=== PATIENT | female | born 1985 | race Caucasian/White ===

== ENCOUNTER 2021-07-28 08:56 | Day surgery (SDC) | payer MEDICAID ==
[2021-07-22 12:29] LABS: BASOPHILS # (AUTO) 0.1 X10'3 (0-0.2); BASOPHILS % (AUTO) 1.9 % (0-1); EOSINOPHILS # (AUTO) 0.2 X10'3 (0-0.9); EOSINOPHILS % (AUTO) 4.6 % (0-6); LYMPHOCYTES # (AUTO) 1.1 X10'3 (1.1-4.8); LYMPHOCYTES % (AUTO) 21.9 % (21-51); MEAN CORPUSCULAR HEMOGLOBIN 32.8 PG (27.0-31.0); MEAN CORPUSCULAR HGB CONC 33.8 g/dL (33.0-36.5); MEAN CORPUSCULAR VOLUME 97.1 FL (78-98); MEAN PLATELET VOLUME 7.8 FL (7.4-10.4); MONOCYTES # (AUTO) 0.4 X10'3 (0-0.9); NEUTROPHILS # (AUTO) 3.3 X10'3 (1.8-7.7); NEUTROPHILS % (AUTO) 64.6 % (42-75); PRE OP HEMATOCRIT 38.1 % (35.0-45.0); PRE OP HEMOGLOBIN 12.9 g/dL (12.0-16.0); PRE OP PLATELET COUNT 253 X10'3 (140-440); RED BLOOD COUNT 3.93 X10'6 (4.20-5.60); RED CELL DISTRIBUTION WIDTH 12.3 % (11.5-14.5)
[2021-07-22 12:45] LABS: ALBUMIN 4.2 G/DL (3.4-5.0); ALBUMIN/GLOBULIN RATIO 1.2 (1.1-1.5); ALKALINE PHOSPHATASE 75 IU/L (46-116); BLOOD UREA NITROGEN 11 MG/DL (7-18); BUN/CREATININE RATIO 14.7 (6.6-38.0); CALCIUM 9.2 MG/DL (8.5-10.1); CHLORIDE 108 MMOL/L (99-107); CREATININE 0.75 MG/DL (0.40-0.90); HCG SERUM QL NEGATIVE; PRE OP ALT 23 U/L (30-65); PRE OP ANION GAP 9 (8-16); PRE OP AST 16 U/L (10-37); PRE OP BILIRUB, TOTAL 0.5 MG/DL (0.0-1.0); PRE OP GLUCOSE 89 MG/DL (70-104); PRE OP POTASSIUM 4.1 MMOL/L (3.4-5.1); PRE OP SODIUM 144 MMOL/L (135-145); TOTAL CARBON DIOXIDE 27.4 MMOL/L (24-32); TOTAL PROTEIN 7.6 G/DL (6.4-8.2); eGFR 88 ML/MIN
[2021-07-28] VITALS (8 sets, daily range): BP systolic 100–117; BP diastolic 57–67
[~2021-07-28] VITALS: Ht 162.6 cm; Wt 62.6 kg
[~2021-07-28 08:56] MED LIST: BUSP5TAB3 PO; MULT-1085 PO; SERT-433 PO; famotidine 20mg tablet PO ONE; ringers solution, lacted 1,000 ML IV SCH
[2021-07-28] MEDS ORDERED: LIDOCAINE 1%/EPI 1:100,000 inj. 10 ML multi-dose vial ONE (14:08)
[2021-07-28] MEDS ORDERED: BUPIVAcaine/PF 2.5mg/ml (0.25%) 10ml vial ONE (14:08)
[2021-07-28] MEDS ORDERED: fentaNYL/PF 50MCG/1 ML 2ML syringe ONE (14:10)
[2021-07-28] MEDS ORDERED: midazolam 1 mg/ML 2ml injection ONE (14:11)
[2021-07-28] MEDS ORDERED: dexamethasone sod phosphate 10mg/ml inj ONE (14:12)
[2021-07-28] MEDS ORDERED: neostigmine methylsulfate 1 MG/ML 10ml vial ONE (14:12)
[2021-07-28] MEDS ORDERED: sevoflurane 250ml liquid IH ONE (14:12)
[2021-07-28] MEDS ORDERED: ondansetron/PF 4mg/2ml inj ONE (14:12)
[2021-07-28] MEDS ORDERED: rocuronium 10mg/ml inj IV ONE (14:27)
[2021-07-28] MEDS ORDERED: propofol inj 20 ML IV ONE (14:27)
[2021-07-28] MEDS ORDERED: glycopyrrolate 0.2mg/ml inj ONE (14:27)
[2021-07-28] MEDS ORDERED: LIDOcaine 2% (20mg/ml) 5ml vial ONE (14:27)
[2021-07-28] MEDS ORDERED: ringers solution, lacted 1,000 ML IV SCH (14:40)
[2021-07-28] MEDS ORDERED: fentaNYL/PF 50MCG/1 ML 2ML syringe IV PRN ×3 (14:40)
[2021-07-28] MEDS ORDERED: labetalol 20mg/4ml (5mg/ml) syringe IV PRN (14:40)
[2021-07-28] MEDS ORDERED: hydrALAZINE 20mg/ml inj. IV PRN (14:40)
[2021-07-28] MEDS ORDERED: ondansetron/PF 4mg/2ml inj IV PRN (14:40)
[2021-07-28] MEDS ORDERED: morphine 4 MG/ML inj SYRINge IV PRN (14:40)
--- NOTE | 2021-07-28 15:01 | NUR ---
Received from OR via , accompanied by Anesthesiologist DR SANCHEZ and report given by Anesthesiolgist. AWAKENS TO VOICE. VITALS STABLE. DRESSING DI. PAWAN PAIN.
[2021-07-28] MEDS ORDERED: HYDROcodone/acetaminophen 5mg/325mg tablet PO ONE (15:25)
--- NOTE | 2021-07-28 16:11 | NUR ---
AWAKE AND ORIENTED. VITALS STABLE. DRESSING DI. STATES PAIN IMPROVING. HOME WITH HER SPOUSE AT THIS TIME.
== END 2021-07-28 16:11 | disposition home or self-care (01) ==
LOC: PAS 08:56
PROVIDERS: ATTEND Colon & Rectal Surgery
DX: K60.1 Chronic anal fissure (principal); K62.89 Other specified diseases of anus and rectum; F32.9 Major depressive disorder, single episode, unspecified; D64.9 Anemia, unspecified; Z20.822 Contact with and (suspected) exposure to COVID-19; Z98.890 Other specified postprocedural states; Z79.899 Other long term (current) drug therapy
CPT/HCPCS: 36415; 45990; 46200; 80053; 82948; 84703; 85025; J1100; J2001; J2250; J2405; J2704; J2710; J3010; J3490; U0003; U0005; Z7506; Z7512; A4215; A4402; A4618; A7000; J7120

== ENCOUNTER 2023-01-12 15:16 | Emergency (ER) | payer BC, MEDICAID ==
[~2023-01-12] VITALS: Ht 162.6 cm; Wt 61.2 kg
[~2023-01-12 15:16] MED LIST changes: -famotidine 20mg tablet PO ONE; -ringers solution, lacted 1,000 ML IV SCH
[2023-01-12 15:29] VITALS: BP 105/69
[2023-01-12 15:48] LABS: BASOPHILS # (AUTO) 0.1 X10'3 (0-0.2); BASOPHILS % (AUTO) 1.1 % (0-1); EOSINOPHILS # (AUTO) 0.1 X10'3 (0-0.9); EOSINOPHILS % (AUTO) 2.1 % (0-6); HEMATOCRIT 36.9 % (35.0-45.0); HEMOGLOBIN 12.4 g/dl (12.0-16.0); LYMPHOCYTES # (AUTO) 1.6 X10'3 (1.1-4.8); LYMPHOCYTES % (AUTO) 24.1 % (21-51); MEAN CORPUSCULAR HEMOGLOBIN 32.3 PG (27.0-31.0); MEAN CORPUSCULAR HGB CONC 33.6 g/dL (33.0-36.5); MEAN CORPUSCULAR VOLUME 96.3 FL (78-98); MEAN PLATELET VOLUME 7.9 FL (7.4-10.4); MONOCYTES # (AUTO) 0.4 X10'3 (0-0.9); MONOCYTES % (AUTO) 6.5 % (2-12); NEUTROPHILS # (AUTO) 4.5 X10'3 (1.8-7.7); NEUTROPHILS % (AUTO) 66.2 % (42-75); PLATELET COUNT 237 X10'3 (140-440); RED BLOOD COUNT 3.83 X10'6 (4.20-5.60); WHITE BLOOD COUNT 6.8 X10'3 (4.5-11.0)
[2023-01-12 16:04] LABS: ALANINE AMINOTRANSFERASE 17 U/L (12-78); ALBUMIN/GLOBULIN RATIO 1.2 (1.1-1.5); ALKALINE PHOSPHATASE 41 IU/L (46-116); ANION GAP 5 (8-16); ASPARTATE AMINO TRANSFERASE 17 U/L (10-37); BILIRUBIN,TOTAL 0.3 MG/DL (0.1-1.0); BLOOD UREA NITROGEN 16 MG/DL (7-18); BUN/CREATININE RATIO 23.5 (10.0-20.0); CALCIUM 9.3 MG/DL (8.5-10.1); CHLORIDE 107 MMOL/L (99-107); CREATININE 0.68 MG/DL (0.40-0.90); GLUCOSE 114 MG/DL (70-104); SODIUM 141 MMOL/L (135-145); TOTAL CARBON DIOXIDE 28.9 MMOL/L (24-32); TOTAL PROTEIN 7.3 G/DL (6.4-8.2); eGFR > 90 ML/MIN
[2023-01-12 16:11] LABS: MAGNESIUM 2.1 MG/DL (1.5-2.4)
[2023-01-12] MEDS ORDERED: [UNRECOGNIZED DRUG - CODE] PO (19:10)
[2023-01-12] MEDS ORDERED: morphine 4 MG/ML inj SYRINge IV ONE (19:30)
[2023-01-12] MEDS ORDERED: ondansetron/PF 4mg/2ml inj IV ONE (19:30)
== END 2023-01-12 19:36 | disposition home or self-care (01) ==
LOC: ER 15:17
DX: R07.9 Chest pain, unspecified (principal); R00.2 Palpitations; F41.9 Anxiety disorder, unspecified
CPT/HCPCS: 36415; 80053; 82948; 83735; 83880; 84484; 85025; 93005; 99284

== ENCOUNTER 2023-04-22 22:49 | Emergency (ER) | payer BC, MEDICAID ==
[~2023-04-22] VITALS: Ht 162.6 cm; Wt 62.3 kg
[~2023-04-22 22:49] MED LIST changes: +[UNRECOGNIZED DRUG - CODE] PO
[2023-04-22 23:31] LABS: BASOPHILS # (AUTO) 0.1 X10'3 (0-0.2); EOSINOPHILS # (AUTO) 0.2 X10'3 (0-0.9); HEMATOCRIT 35.3 % (35.0-45.0); HEMOGLOBIN 11.9 g/dl (12.0-16.0); LYMPHOCYTES # (AUTO) 2.1 X10'3 (1.1-4.8); LYMPHOCYTES % (AUTO) 28.2 % (21-51); MEAN CORPUSCULAR HEMOGLOBIN 32.3 PG (27.0-31.0); MEAN CORPUSCULAR HGB CONC 33.6 g/dL (33.0-36.5); MEAN CORPUSCULAR VOLUME 96.2 FL (78-98); MEAN PLATELET VOLUME 8.2 FL (7.4-10.4); MONOCYTES # (AUTO) 0.7 X10'3 (0-0.9); NEUTROPHILS # (AUTO) 4.4 X10'3 (1.8-7.7); NEUTROPHILS % (AUTO) 58.8 % (42-75); PLATELET COUNT 212 X10'3 (140-440); RED BLOOD COUNT 3.67 X10'6 (4.20-5.60); RED CELL DISTRIBUTION WIDTH 13.3 % (11.5-14.5); WHITE BLOOD COUNT 7.5 X10'3 (4.5-11.0)
--- NOTE | 2023-04-22 23:32 | NUR ---
pt reports blood sugar dropping to 47 on home monitor. gave pt orange juice, rachel crackers and a turkey sandwich while still in lobby.
[2023-04-22 23:39] LABS: ALANINE AMINOTRANSFERASE 23 U/L (12-78); ALBUMIN/GLOBULIN RATIO 1.3 (1.1-1.5); ALKALINE PHOSPHATASE 38 IU/L (46-116); ANION GAP 8 (8-16); ASPARTATE AMINO TRANSFERASE 16 U/L (10-37); BILIRUBIN,TOTAL 0.3 MG/DL (0.1-1.0); BLOOD UREA NITROGEN 20 MG/DL (7-18); CALCIUM 8.8 MG/DL (8.5-10.1); CHLORIDE 105 MMOL/L (99-107); GLUCOSE 90 MG/DL (70-104); POTASSIUM 3.7 MMOL/L (3.5-5.1); SODIUM 140 MMOL/L (135-145); TOTAL PROTEIN 7.1 G/DL (6.4-8.2); eGFR 81 ML/MIN
[2023-04-22 23:48] LABS: URINE HCG NEGATIVE (NEG)
--- NOTE | 2023-04-22 23:52 | NUR ---
PT REPORTS LOW BLOOD SUGAR ON MONITOR READING "LOW". BROUGHT TO ROOM 8, AND JUICE TAKEN AND KARLI CRAKERS EATED. ACCUCHECK READING 110. IV INITIATED.
[2023-04-22 23:53] LABS: CLARITY,URINE CLEAR (Clear); COLOR,URINE YELLOW (Yellow); GLUCOSE, URINE NEGATIVE (Neg); KETONES,URINE NEGATIVE (Neg); LEUKOCYTE ESTERASE ,URINE NEGATIVE (Neg); NITRITES, URINE NEGATIVE (Neg); OCCULT BLOOD,URINE NEGATIVE (Neg); PROTEIN,URINE NEGATIVE (Neg); UROBILINOGEN,URINE 0.2 E.U/dL (0.2-1.0)
[2023-04-22] MEDS ORDERED: FERR-119 PO (23:58)
[2023-04-22] MEDS ORDERED: SERT-434 PO (23:58)
[2023-04-23] LABS: UA COLLECTION TYPE CLN CATCH MIDSTREAM
[2023-04-23] MEDS ORDERED: dexamethasone sod phosphate 10mg/ml inj IV STA (00:24)
--- NOTE | 2023-04-23 00:45 | NUR ---
blood glucose monitor from this rn and pt CGM difference is around [address] dean notified of discrepency.
[2023-04-23 00:46] VITALS: BP 118/76
== END 2023-04-23 01:04 | disposition home or self-care (01) ==
LOC: ER 22:50
DX: E16.2 Hypoglycemia, unspecified (principal)
CPT/HCPCS: 36415; 80053; 81003; 81025; 82948; 83880; 84484; 85025; 93005; 96374; 99284; J1100

== ENCOUNTER 2024-01-27 09:56 | Day surgery (SDC) | payer BC ==
[2024-01-24 15:20] LABS: BASOPHILS # (AUTO) 0.1 X10'3 (0-0.2); BASOPHILS % (AUTO) 0.9 % (0-1); EOSINOPHILS # (AUTO) 0.1 X10'3 (0-0.9); EOSINOPHILS % (AUTO) 1.6 % (0-6); LYMPHOCYTES # (AUTO) 1.6 X10'3 (1.1-4.8); LYMPHOCYTES % (AUTO) 27.9 % (21-51); MEAN CORPUSCULAR HEMOGLOBIN 32.9 PG (27.0-31.0); MEAN CORPUSCULAR HGB CONC 34.1 g/dL (33.0-36.5); MEAN CORPUSCULAR VOLUME 96.5 FL (78-98); MEAN PLATELET VOLUME 8.1 FL (7.4-10.4); MONOCYTES # (AUTO) 0.5 X10'3 (0-0.9); MONOCYTES % (AUTO) 8.4 % (2-12); NEUTROPHILS # (AUTO) 3.6 X10'3 (1.8-7.7); NEUTROPHILS % (AUTO) 61.2 % (42-75); PRE OP HEMATOCRIT 39.2 % (35.0-45.0); PRE OP HEMOGLOBIN 13.4 g/dL (12.0-16.0); PRE OP PLATELET COUNT 241 X10'3 (140-440); PRE OP WHITE BLOOD COUNT 5.9 10'3 (4.8-10.8); RED BLOOD COUNT 4.07 X10'6 (4.20-5.60); RED CELL DISTRIBUTION WIDTH 12.7 % (11.5-14.5)
[2024-01-24 15:35] LABS: ALBUMIN 3.8 G/DL (3.4-5.0); ALKALINE PHOSPHATASE 42 IU/L (46-116); BLOOD UREA NITROGEN 15 MG/DL (7-18); BUN/CREATININE RATIO 23.8 (10.0-20.0); CHLORIDE 102 MMOL/L (99-107); CREATININE 0.63 MG/DL (0.40-0.90); PRE OP ALT 29 U/L (30-65); PRE OP ANION GAP 9 (8-16); PRE OP AST 25 U/L (10-37); PRE OP BILIRUB, TOTAL 0.3 MG/DL (0.0-1.0); PRE OP GLUCOSE 88 MG/DL (70-104); PRE OP SODIUM 140 MMOL/L (135-145); TOTAL CARBON DIOXIDE 29.5 MMOL/L (24-32); TOTAL PROTEIN 7.6 G/DL (6.4-8.2); eGFR > 90 ML/MIN
[2024-01-24 16:08] LABS: HCG SERUM QL NEGATIVE
[2024-01-27] VITALS (13 sets, daily range): BP systolic 93–110; BP diastolic 53–65; PULSE 64–93; RESP 12–18; TEMP 97.4; O2SAT 99–100
[~2024-01-27] VITALS: Ht 162.6 cm; Wt 63.6 kg
[2024-01-27] MEDS: ceFOXitin 2GM-NS 100mL ADDvant 100 ML IV ONE (05:30)
[~2024-01-27 09:56] MED LIST changes: +GLUCOSE TABS; +METH-798 PO; -SERT-433 PO; +SERT-434 PO; -[UNRECOGNIZED DRUG - CODE] PO
[2024-01-27] MEDS: famotidine 20mg tablet PO ONE (10:39)
[2024-01-27] MEDS: ringers solution, lacted 1,000 ML IV SCH ×2 (10:40→13:59)
[2024-01-27 12:01] LABS: URINE HCG NEGATIVE (NEG)
[2024-01-27] MEDS ORDERED: proCHLORperazine 10 MG/2 ml inj IV PRN (12:30)
[2024-01-27] MEDS ORDERED: morphine 2 MG/ML inj. syringe IV PRN (12:30)
[2024-01-27] MEDS ORDERED: hydrALAZINE 20mg/ml inj. IV PRN (12:30)
[2024-01-27] MEDS ORDERED: labetalol 20mg/4ml (5mg/ml) syringe IV PRN (12:30)
[2024-01-27] MEDS ORDERED: morphine 4 MG/ML inj SYRINge IV PRN (12:30)
[2024-01-27] MEDS ORDERED: meperidine/PF 25mg/ml syringe IV PRN (12:30)
[2024-01-27] MEDS ORDERED: HYDROmorphone/PF 0.2 MG/ML SYRINGE IV PRN ×2 (12:30)
[2024-01-27] MEDS ORDERED: sevoflurane 250ml liquid IH ONE (12:32)
[2024-01-27] MEDS ORDERED: fentaNYL/PF 50MCG/1 ML 2ML syringe ONE (12:36)
[2024-01-27] MEDS ORDERED: midazolam 1 mg/ML 2ml injection ONE (12:36)
[2024-01-27] MEDS ORDERED: propofol inj 20 ML IV ONE (12:45)
[2024-01-27] MEDS ORDERED: LIDOcaine 2% (20mg/ml) 5ml vial ONE ×2 (12:45)
[2024-01-27] MEDS ORDERED: rocuronium 10mg/ml inj IV ONE (12:45)
[2024-01-27] MEDS ORDERED: dexamethasone sod phosphate 4mg/ml inj. ONE (12:45)
[2024-01-27] MEDS ORDERED: ondansetron/PF 4mg/2ml inj ONE (12:45)
[2024-01-27] MEDS: BUPIVAcaine 0.25% w/Epi /PF 30ml vial ONE (13:26)
[2024-01-27] MEDS ORDERED: morphine 4 MG/ML inj SYRINge ONE (13:35)
[2024-01-27] MEDS: ondansetron/PF 4mg/2ml inj IV PRN (13:48)
[2024-01-27] MEDS: acetaminophen 1,000mg/100ml IV 100 ML IV ONE (13:58)
[2024-01-27] MEDS: ketorolac trometh. 30mg/ml inj. IV ONE (14:00)
== END 2024-01-27 15:34 | disposition home or self-care (01) ==
LOC: PAS 09:56
PROVIDERS: ATTEND Specialist
DX: Z30.2 Encounter for sterilization (principal); N92.0 Excessive and frequent menstruation with regular cycle; F41.9 Anxiety disorder, unspecified; F32.A Depression, unspecified; Z79.891 Long term (current) use of opiate analgesic; Z79.899 Other long term (current) drug therapy; Z90.721 Acquired absence of ovaries, unilateral; Z98.890 Other specified postprocedural states
CPT/HCPCS: 36415; 58563; 58670; 80053; 81025; 82948; 84703; 85025; 93005; J0131; J0665; J0694; J1100; J1885; J2250; J2270; J2405; J2704; J2710; J3010; J3490; J7030; J7120; Z7506; Z7508; Z7512; A4355; A4618; A4649; A6258; A7000; S0020

== ENCOUNTER 2024-02-22 08:35 | Outpatient (CLI) | payer BC ==
[2024-02-22 09:23] LABS: BASOPHILS # (AUTO) 0.1 X10'3 (0-0.2); BASOPHILS % (AUTO) 1.4 % (0-1); EOSINOPHILS # (AUTO) 0.1 X10'3 (0-0.9); EOSINOPHILS % (AUTO) 2.3 % (0-6); HEMATOCRIT 38.2 % (35.0-45.0); LYMPHOCYTES # (AUTO) 1.2 X10'3 (1.1-4.8); LYMPHOCYTES % (AUTO) 24.8 % (21-51); MEAN CORPUSCULAR HEMOGLOBIN 33.2 PG (27.0-31.0); MEAN CORPUSCULAR VOLUME 97.7 FL (78-98); MEAN PLATELET VOLUME 8.5 FL (7.4-10.4); MONOCYTES # (AUTO) 0.3 X10'3 (0-0.9); MONOCYTES % (AUTO) 5.9 % (2-12); NEUTROPHILS # (AUTO) 3.2 X10'3 (1.8-7.7); NEUTROPHILS % (AUTO) 65.6 % (42-75); PLATELET COUNT 224 X10'3 (140-440); RED BLOOD COUNT 3.91 X10'6 (4.20-5.60); WHITE BLOOD COUNT 4.8 X10'3 (4.5-11.0)
[2024-02-22 09:40] LABS: ALANINE AMINOTRANSFERASE 17 U/L (12-78); ALBUMIN 4.1 G/DL (3.4-5.0); ALBUMIN/GLOBULIN RATIO 1.2 (1.1-1.5); ALKALINE PHOSPHATASE 36 IU/L (46-116); ANION GAP 10 (8-16); ASPARTATE AMINO TRANSFERASE 13 U/L (10-37); BILIRUBIN,TOTAL 0.6 MG/DL (0.1-1.0); BLOOD UREA NITROGEN 10 MG/DL (7-18); BUN/CREATININE RATIO 14.3 (10.0-20.0); CALCIUM 8.9 MG/DL (8.5-10.1); CHLORIDE 106 MMOL/L (99-107); FERRITIN 44 NG/ML (8-252); FREE T4 (FREE THYROXINE) 0.78 NG/DL (0.73-1.40); GLUCOSE 75 MG/DL (70-104); POTASSIUM 3.9 MMOL/L (3.5-5.1); SODIUM 143 MMOL/L (135-145); THYROID STIMULATING HORMONE 2.12 ulU/ml (0.34-4.50); TOTAL CARBON DIOXIDE 27.1 MMOL/L (24-32); TOTAL PROTEIN 7.4 G/DL (6.4-8.2); eGFR > 90 ML/MIN
[2024-02-22 09:53] LABS: % IRON SATURATION 35 % (11-46); IRON 113 UG/DL (49-151); TOTAL IRON BINDING CAPACITY 325 UG/DL (259-388)
[2024-02-23 16:43] LABS: FOLATE SERUM(FOLIC) 17.1 ng/mL (>3.0)
== END 2024-02-22 23:59 | disposition home or self-care (01) ==
LOC: RAD 08:35
PROVIDERS: ATTEND Nurse Practitioner Family
DX: R53.83 Other fatigue (principal); Z73.3 Stress, not elsewhere classified; D64.9 Anemia, unspecified
CPT/HCPCS: 36415; 80053; 82607; 82728; 82746; 83540; 83550; 84439; 84443; 85025

== ENCOUNTER 2024-04-26 08:42 | Outpatient (CLI) | payer BC ==
[2024-04-26 09:29] LABS: BASOPHILS # (AUTO) 0.1 X10'3 (0-0.2); BASOPHILS % (AUTO) 1.4 % (0-1); EOSINOPHILS # (AUTO) 0.2 X10'3 (0-0.9); EOSINOPHILS % (AUTO) 4.1 % (0-6); HEMATOCRIT 36.4 % (35.0-45.0); HEMOGLOBIN 12.3 g/dl (12.0-16.0); LYMPHOCYTES # (AUTO) 1.1 X10'3 (1.1-4.8); LYMPHOCYTES % (AUTO) 27.4 % (21-51); MEAN CORPUSCULAR HEMOGLOBIN 32.7 PG (27.0-31.0); MEAN CORPUSCULAR HGB CONC 33.8 g/dL (33.0-36.5); MEAN CORPUSCULAR VOLUME 96.8 FL (78-98); MEAN PLATELET VOLUME 8.2 FL (7.4-10.4); MONOCYTES # (AUTO) 0.3 X10'3 (0-0.9); NEUTROPHILS # (AUTO) 2.3 X10'3 (1.8-7.7); NEUTROPHILS % (AUTO) 59.1 % (42-75); PLATELET COUNT 199 X10'3 (140-440); RED BLOOD COUNT 3.76 X10'6 (4.20-5.60); RED CELL DISTRIBUTION WIDTH 12.8 % (11.5-14.5); WHITE BLOOD COUNT 3.9 X10'3 (4.5-11.0)
[2024-04-26 09:43] LABS: ALANINE AMINOTRANSFERASE 31 U/L (12-78); ALBUMIN 3.7 G/DL (3.4-5.0); ALBUMIN/GLOBULIN RATIO 1.2 (1.1-1.5); ALKALINE PHOSPHATASE 32 IU/L (46-116); ANION GAP 7 (8-16); ASPARTATE AMINO TRANSFERASE 18 U/L (10-37); BILIRUBIN,TOTAL 0.5 MG/DL (0.1-1.0); BLOOD UREA NITROGEN 11 MG/DL (7-18); BUN/CREATININE RATIO 15.7 (10.0-20.0); CALCIUM 8.8 MG/DL (8.5-10.1); CHLORIDE 107 MMOL/L (99-107); CHOL/HDL RATIO 2.5 (0.00-4.99); CHOLESTEROL 176 MG/DL (0-200); FREE T4 (FREE THYROXINE) 0.77 NG/DL (0.73-1.40); GLUCOSE 84 MG/DL (70-104); HDL CHOLESTEROL 70 MG/DL (35-60); LDL CHOLESTEROL 99 MG/DL (50-100); POTASSIUM 3.7 MMOL/L (3.5-5.1); SODIUM 141 MMOL/L (135-145); TOTAL CARBON DIOXIDE 27.4 MMOL/L (24-32); TOTAL PROTEIN 6.9 G/DL (6.4-8.2); TRIGLYCERIDES 30 MG/DL (20-135); eGFR > 90 ML/MIN
[2024-04-26 09:56] LABS: THYROID STIMULATING HORMONE 1.79 ulU/ml (0.34-4.50)
== END 2024-04-26 23:59 | disposition home or self-care (01) ==
LOC: RAD 08:42
PROVIDERS: ATTEND Psychiatry & Neurology Psychiatry
DX: R53.83 Other fatigue (principal)
CPT/HCPCS: 36415; 80053; 80061; 84439; 84443; 85025

== ENCOUNTER 2024-06-04 12:51 | Outpatient (CLI) | payer BC | END 2024-06-04 23:59 | disposition home or self-care (01) | LOC: MRI 12:51 | PROVIDERS: ATTEND Nurse Practitioner Family | DX: M47.812 Spondylosis without myelopathy or radiculopathy, cervical region (principal); M48.02 Spinal stenosis, cervical region; M54.2 Cervicalgia | CPT/HCPCS: 72141 ==

== ENCOUNTER 2024-09-08 10:57 | Outpatient (CLI) | payer BC ==
[2024-09-08 11:22] LABS: BASOPHILS # (AUTO) 0.1 X10'3 (0-0.2); BASOPHILS % (AUTO) 1.4 % (0-1); EOSINOPHILS # (AUTO) 0.2 X10'3 (0-0.9); EOSINOPHILS % (AUTO) 3.1 % (0-6); HEMATOCRIT 38.4 % (35.0-45.0); HEMOGLOBIN 13.2 g/dl (12.0-16.0); LYMPHOCYTES # (AUTO) 1.8 X10'3 (1.1-4.8); LYMPHOCYTES % (AUTO) 27.7 % (21-51); MEAN CORPUSCULAR HEMOGLOBIN 33.4 PG (27.0-31.0); MEAN CORPUSCULAR HGB CONC 34.3 g/dL (33.0-36.5); MEAN CORPUSCULAR VOLUME 97.3 FL (78-98); MONOCYTES # (AUTO) 0.5 X10'3 (0-0.9); MONOCYTES % (AUTO) 6.9 % (2-12); NEUTROPHILS % (AUTO) 60.9 % (42-75); PLATELET COUNT 229 X10'3 (140-440); RED BLOOD COUNT 3.95 X10'6 (4.20-5.60); RED CELL DISTRIBUTION WIDTH 12.6 % (11.5-14.5); WHITE BLOOD COUNT 6.5 X10'3 (4.5-11.0)
[2024-09-08 11:35] LABS: ALANINE AMINOTRANSFERASE 21 U/L (12-78); ALBUMIN 4.1 G/DL (3.4-5.0); ALBUMIN/GLOBULIN RATIO 1.2 (1.1-1.5); ALKALINE PHOSPHATASE 32 IU/L (46-116); ANION GAP 4 (8-16); ASPARTATE AMINO TRANSFERASE 15 U/L (10-37); BILIRUBIN,TOTAL 0.4 MG/DL (0.1-1.0); BLOOD UREA NITROGEN 12 MG/DL (7-18); CALCIUM 8.7 MG/DL (8.5-10.1); CHLORIDE 104 MMOL/L (99-107); GLUCOSE 97 MG/DL (70-104); POTASSIUM 3.8 MMOL/L (3.5-5.1); SODIUM 137 MMOL/L (135-145); TOTAL CARBON DIOXIDE 29.1 MMOL/L (24-32); TOTAL PROTEIN 7.6 G/DL (6.4-8.2); eGFR 80 ML/MIN
== END 2024-09-08 23:59 | disposition home or self-care (01) ==
LOC: RAD 10:57
PROVIDERS: ATTEND Nurse Practitioner Family
DX: R04.2 Hemoptysis (principal)
CPT/HCPCS: 36415; 71046; 80053; 85025

== ENCOUNTER 2024-11-21 07:36 | Day surgery (SDC) | payer BC ==
[~2024-11-21] VITALS: Ht 162.6 cm; Wt 60.9 kg
[~2024-11-21 07:36] MED LIST changes: +BUSP30TA3; -BUSP5TAB3 PO; -METH-798 PO; -MULT-1085 PO; +OMEP40CA21; +PROC-8 PO; +PROC10TA97 PO; +SUMA25TA9; +VALA100031 PO
[2024-11-21 07:55] VITALS: BP 110/65; PULSE 70; RESP 19
[2024-11-21] MEDS ORDERED: fentaNYL/PF 50MCG/1 ML 2ML syringe ONE (08:30)
[2024-11-21] MEDS ORDERED: propofol inj 20 ML IV ONE (08:31)
[2024-11-21] MEDS ORDERED: MIDAZolam 1 MG/ML 5ML VIAL ONE (08:31)
[2024-11-21] MEDS ORDERED: LIDOcaine 2% (20mg/ml) 5ml vial ONE (08:31)
[2024-11-21 09:05] VITALS: BP 84/56; PULSE 60; RESP 16; O2SAT 100
[2024-11-21 09:15] VITALS: BP 94/63; PULSE 67; RESP 15; O2SAT 100
[2024-11-21 09:25] VITALS: BP 98/60; PULSE 61; RESP 14; O2SAT 100
[2024-11-21 09:35] VITALS: BP 96/66; PULSE 58; RESP 15; O2SAT 100
== END 2024-11-21 09:46 | disposition home or self-care (01) ==
LOC: GI LAB 07:36
PROVIDERS: ATTEND Internal Medicine Gastroenterology
DX: K30 Functional dyspepsia (principal); K21.9 Gastro-esophageal reflux disease without esophagitis
CPT/HCPCS: 43239; J2003; J2250; J2704; J3010; J7030; Z7512; A4620

== ENCOUNTER 2024-11-27 10:31 | Day surgery (SDC) | payer BC ==
[~2024-11-27] VITALS: Ht 162.6 cm; Wt 60.9 kg
[2024-11-27] VITALS (7 sets, daily range): BP systolic 91–106; BP diastolic 56–63; PULSE 50–61; RESP 12–17; TEMP 98.1; O2SAT 99–100
[2024-11-27] MEDS ORDERED: propofol inj 20 ML IV ONE (12:53)
== END 2024-11-27 13:45 | disposition home or self-care (01) ==
LOC: GI LAB 10:31
PROVIDERS: ATTEND Internal Medicine Gastroenterology
DX: R19.4 Change in bowel habit (principal); Z83.79 Family history of other diseases of the digestive system
CPT/HCPCS: 45380; J2704; J7030; Z7512; A4620

== ENCOUNTER 2025-03-14 12:41 | Outpatient (CLI) | payer BC ==
[2025-03-14 13:08] LABS: BASOPHILS # (AUTO) 0.1 X10'3 (0-0.2); BASOPHILS % (AUTO) 1.3 % (0-1); EOSINOPHILS # (AUTO) 0.1 X10'3 (0-0.9); EOSINOPHILS % (AUTO) 2.2 % (0-6); HEMATOCRIT 35.9 % (35.0-45.0); HEMOGLOBIN 12.2 g/dl (12.0-16.0); LYMPHOCYTES # (AUTO) 1.4 X10'3 (1.1-4.8); MEAN CORPUSCULAR HEMOGLOBIN 32.7 PG (27.0-31.0); MEAN CORPUSCULAR VOLUME 96.2 FL (78-98); MEAN PLATELET VOLUME 8.1 FL (7.4-10.4); MONOCYTES # (AUTO) 0.3 X10'3 (0-0.9); MONOCYTES % (AUTO) 7.9 % (2-12); NEUTROPHILS # (AUTO) 2.4 X10'3 (1.8-7.7); NEUTROPHILS % (AUTO) 55.6 % (42-75); PLATELET COUNT 215 X10'3 (140-440); RED BLOOD COUNT 3.73 X10'6 (4.20-5.60); RED CELL DISTRIBUTION WIDTH 12.5 % (11.5-14.5); WHITE BLOOD COUNT 4.3 X10'3 (4.5-11.0)
[2025-03-14 13:26] LABS: ALANINE AMINOTRANSFERASE 21 U/L (12-78); ALBUMIN 4.1 G/DL (3.4-5.0); ALBUMIN/GLOBULIN RATIO 1.4 (1.1-1.5); ALKALINE PHOSPHATASE 39 IU/L (46-116); ANION GAP 7 (8-16); ASPARTATE AMINO TRANSFERASE 19 U/L (10-37); BILIRUBIN,TOTAL 0.4 MG/DL (0.1-1.0); BLOOD UREA NITROGEN 9 MG/DL (7-18); BUN/CREATININE RATIO 11.7 (10.0-20.0); CALCIUM 8.9 MG/DL (8.5-10.1); CHLORIDE 104 MMOL/L (99-107); CREATININE 0.77 MG/DL (0.40-0.90); GLUCOSE 86 MG/DL (70-104); POTASSIUM 3.8 MMOL/L (3.5-5.1); SODIUM 139 MMOL/L (135-145); TOTAL CARBON DIOXIDE 28.1 MMOL/L (24-32); TOTAL PROTEIN 7.1 G/DL (6.4-8.2); eGFR 83 ML/MIN
[2025-03-14 14:20] LABS: BETA HCG,QUANTITATIVE < 1.0 mIU/ml
== END 2025-03-14 23:59 | disposition home or self-care (01) ==
LOC: LAB 12:41
PROVIDERS: ATTEND Specialist
DX: N64.4 Mastodynia (principal)
CPT/HCPCS: 36415; 80053; 82670; 83001; 83002; 84146; 84702; 85025

== ENCOUNTER 2025-04-26 13:11 | Outpatient (CLI) | payer BC ==
--- NOTE | 2025-04-26 14:05 | RADIOLOGY REPORT ---
CLINICAL INDICATION: BILATERAL HIP PAIN TECHNIQUE: 2 radiographic views of the bilateral pelvis were obtained. Comparison: None FINDINGS/IMPRESSION: There is no evidence of acute fracture or dislocation. The visualized joint space is well maintained. The alignment is anatomical. There is no radiopaque foreign body.
== END 2025-04-26 23:59 | disposition home or self-care (01) ==
LOC: LAB 13:11
PROVIDERS: ATTEND Nurse Practitioner Family
DX: M25.551 Pain in right hip (principal); M25.552 Pain in left hip
CPT/HCPCS: 73522

== ENCOUNTER 2025-04-27 12:47 | Outpatient (CLI) | payer BC | END 2025-04-27 23:59 | disposition home or self-care (01) | LOC: RAD 12:47 | PROVIDERS: ATTEND Nurse Practitioner Family | DX: R23.2 Flushing (principal) | CPT/HCPCS: 36415; 84439; 84443; 84481 ==

== ENCOUNTER 2025-09-26 09:12 | Outpatient (CLI) | payer BC ==
--- NOTE | 2025-09-26 10:45 | RADIOLOGY REPORT ---
CLINICAL INFORMATION: PAIN IN LEFT HIP. TECHNIQUE: Multisequence multiplanar MRI images of the left hip were obtained without contrast. COMPARISON: None FINDINGS: BONES: No acute fracture or osteonecrosis. JOINT: Moderate joint space narrowing in both hips. Small tear at the superior labrum. No significant joint effusion. BURSAE: Minimal peritrochanteric edema and trace fluid in the left trochanteric bursa. TENDONS: Mild tendinosis of the distal gluteus medius and minimus tendons. Origins of the rectus femoris tendon and hamstring tendons are intact. Distal insertion of the iliopsoas tendon is intact. MUSCLES: Normal muscle bulk. No significant atrophy. No evidence of muscle strain or tear. OTHER: Small amount of free fluid in the posterior pelvis incidentally noted, likely physiologic. Motion artifact limits evaluation on some sequences. IMPRESSION: 1. Small tear at the superior labrum of the left hip. 2. Mild tendinosis of the distal gluteus medius and minimus tendons. 3. Additional nonacute findings as described above.
== END 2025-09-26 23:59 | disposition home or self-care (01) ==
LOC: MRI02 09:12
PROVIDERS: ATTEND Nurse Practitioner Family
DX: S73.192A Other sprain of left hip, initial encounter (principal); M25.552 Pain in left hip; M16.0 Bilateral primary osteoarthritis of hip; M76.892 Other specified enthesopathies of left lower limb, excluding foot; X58.XXXA Exposure to other specified factors, initial encounter; Y93.89 Activity, other specified; Y92.89 Other specified places as the place of occurrence of the external cause; Y99.8 Other external cause status
CPT/HCPCS: 73721